=== PATIENT | female | born 1955 | race Caucasian/White ===

== ENCOUNTER 2017-03-17 10:18 | Day surgery (SDC) | payer BC ==
[~2017-03-17 10:18] MED LIST: Metoclopramide 10 MG/2 ML SDV IV PRN; Sodium Chloride 0.9% 10 ML Syringe FLUSH PRN
[2017-03-17] MEDS ORDERED: Propofol 200 MG/20 ML SDV ONE (13:40)
[2017-03-17] MEDS ORDERED: Sodium Chloride 0.9% 1,000 ML IV SCH (13:45)
[2017-03-17 14:31] VITALS: BP 144/71
--- NOTE | 2017-03-17 18:46 | OR ---
DATE OF OPERATION: 03/17/2017 PREOPERATIVE DIAGNOSIS: Colon cancer screening. POSTOPERATIVE DIAGNOSIS: Colon cancer screening. PROCEDURE PERFORMED: Colonoscopy. ANESTHESIA: MAC. ESTIMATED BLOOD LOSS: None. COMPLICATIONS: None. INDICATIONS FOR THE PROCEDURE: The patient is a 61-year-old female, who is here for routine screening colonoscopy. Her last colonoscopy was approximately 11 years ago, and was normal per patient. The patient has had some lower abdominal pains recently; however, these have now resolved. The patient, otherwise, has no change in bowel habits. DESCRIPTION OF PROCEDURE: Informed consent was obtained from the patient. The patient was taken to the operating room and placed on the table in the left lateral decubitus position. Monitored anaesthesia care was applied. Digital rectal examination was performed and no masses were identified. The patient had good rectal tone. The colonoscope was then advanced through the anus, and directed towards the cecum, and did reach the cecum identified by the appendiceal orifice and ileocecal valve. Colonoscope was slowly withdrawn. No masses. No polyps. No AV malformations. No areas of ischemia or inflammation were identified. Retroflexion was performed in the rectum, which was unremarkable. Colonoscope was then removed. FINDINGS: Normal colonoscopy. RECOMMENDATIONS: Would recommend repeat screening colonoscopy in 10 years. ANGELO/MIGNON /[id number]
== END 2017-03-17 15:10 | disposition home or self-care (01) ==
LOC: LB.SDS 10:18
PROVIDERS: ATTEND Surgery
DX: Z12.11 Encounter for screening for malignant neoplasm of colon (principal); Z79.899 Other long term (current) drug therapy; Z91.09 Other allergy status, other than to drugs and biological substances
CPT/HCPCS: 45378; J2704; J7040

== ENCOUNTER 2020-08-04 15:27 | Emergency (ER) | payer MEDICARE ==
[2020-08-04 16:31] VITALS: BP 139/89; PULSE 103
[2020-08-04] MEDS ORDERED: traMADol 50 MG Tab ONE (16:50)
--- NOTE | 2020-08-04 18:05 | EDM.PDOC ---
ED HPI GENERAL MEDICAL PROBLEM - General Chief Complaint: Lower Extremity Injury/Pain Stated Complaint: crushed leg Time Seen by Provider: 08/04/20 16:00 Source of Information: Reports: Patient - History of Present Illness INITIAL COMMENTS - FREE TEXT/NARRATIVE: This is 64 year old Patient presents to the ER with right leg pain after the car door shut on her leg. States she was opening the garage and realized the vehicle was not in park when she got out. She opened the garage and hurried to get back into the car, as the car drove into the garage the door shut down on her right leg. rates right leg pain a 7 out of 10. Swelling noted to back of right knee & anterolateral aspect of her right leg . A bruise also noted on right eye She also had mild bruise on right knee .Pain is worse by movement .Nothing makes pain better denies any h/o loss of consciousness ,fever,nausea ,vomiting ,headache ,chest pain ,abd pain Onset: Today, Sudden Onset Date: 08/04/20 Duration: Hour(s): (2) Quality: Reports: Sharp Severity: Moderate Improves with: Reports: None Worsens with: Reports: Movement Associated Symptoms: Reports: Other (swelling present on right leg ) Right Leg Pain Score (Numeric/FACES): 7 - Related Data Allergies Allergy/AdvReac Type Severity Reaction Status Date / Time No Known Allergies Allergy Verified 08/04/20 16:10 Review of Systems - Review of Systems Review Of Systems: See Below Constitutional: Reports: No Symptoms Eyes: Reports: No Symptoms Respiratory: Reports: No Symptoms, Shortness of Breath, Wheezing, Cough Cardiovascular: Reports: No Symptoms, Chest Pain, Lightheadedness, Palpitations GI/Abdominal: Reports: No Symptoms, Abdominal Pain, Constipation, Decreased Appetite, Diarrhea Musculoskeletal: Reports: Other (swelling & bruising of right knee ,swelling right lower leg ,tenderness present ,ROM decreased on righ knee ) Neurological: Reports: No Symptoms ED EXAM, GENERAL - Physical Exam Exam: See Below Exam Limited By: No Limitations General Appearance: Alert, WD/WN, No Apparent Distress Ears: Other (swelling & brusie present on right eye ) Head: Atraumatic, Normocephalic Respiratory/Chest: No Respiratory Distress, Lungs Clear, Normal Breath Sounds, No Accessory Muscle Use, Chest Non-Tender Cardiovascular: No Edema, No Gallop, No Murmur, No Rub GI/Abdominal: Normal Bowel Sounds, Soft, Non-Tender, No Organomegaly, No Distention Extremities: Other (swelling of right lower leg ,tenderness + ROM decreased on right knee ) Neurological: Alert, Oriented, CN II-XII Intact Course - Vital Signs Text/Narrative:: 64 year old female came with h/o right leg injury Vitals done X ray leg & right knee done -shows moderate to advanced tricompartmental changes . NO fracture of right leg Knee immobilizer applied Pt was sent home F/U at clinic Medication - Tramadol 50 po 8 hourly for pain as needed Last Recorded V/S: Last Vital Signs Temp 96.1 F L 08/04/20 15:45 Pulse 103 H 08/04/20 15:45 Resp 18 08/04/20 15:45 BP 139/89 08/04/20 15:45 Pulse Ox 100 08/04/20 15:45 - Orders/Labs/Meds Orders: Active Orders 24 hr Category Date Time Status Knee 1V or 2V Bi [CR] Stat Exams 08/04/20 16:00 Taken Tibia Fibula Rt [CR] Stat Exams 08/04/20 16:15 Taken Departure - Departure Time of Disposition: 16:45 Disposition: Home, Self-Care 01 Clinical Impression: Contusion of right leg Qualifiers: Encounter type: initial encounter Qualified Code(s): S80.11XA - Contusion of right lower leg, initial encounter Contusion of right knee Qualifiers: Encounter type: initial encounter Qualified Code(s): S80.01XA - Contusion of right knee, initial encounter - Discharge Information Forms: ED Department Discharge Additional Instructions: Discharge home. Elevated leg on 3-4 pillows, wiggle toes and wear splint. Tramadol 50mg by mouth 1 tablet every 8 hours as needed for pain. If swelling gets worse, go straight to [facility] due to compartment syndrome concerns. Follow up with Dr. Fernandes as needed. Call or return to the ER if you have questions or concerns. Sepsis Event Note (ED) - Evaluation Sepsis Screening Result: No Definite Risk - Focused Exam Vital Signs: Vital Signs Temp Pulse Resp BP Pulse Ox 08/04/20 15:45 96.1 F L 103 H 18 139/89 100 - Problem List & Annotations (1) Contusion of right leg SNOMED Code(s): 48307655, 99321461806459931 Code(s): S80.11XA - CONTUSION OF RIGHT LOWER LEG, INITIAL ENCOUNTER Status: Acute Priority: Medium Onset Date: ~08/04/20 Qualifiers: Encounter type: initial encounter Qualified Code(s): S80.11XA - Contusion of right lower leg, initial encounter (2) Contusion of right knee SNOMED Code(s): 18595950 Code(s): S80.01XA - CONTUSION OF RIGHT KNEE, INITIAL ENCOUNTER Status: Acute Priority: Medium Qualifiers: Encounter type: initial encounter Qualified Code(s): S80.01XA - Contusion of right knee, initial encounter - My Orders Last 24 Hours: My Active Orders 08/04/20 16:00 Knee 1V or 2V Bi [CR] Stat 08/04/20 16:15 Tibia Fibula Rt [CR] Stat - Assessment/Plan Last 24 Hours: My Active Orders 08/04/20 16:00 Knee 1V or 2V Bi [CR] Stat 08/04/20 16:15 Tibia Fibula Rt [CR] Stat Plan: Check swelling of right leg periodically check movements & color of toes take pain med as needed f/u with primary care doctor
--- NOTE | 2020-08-05 12:34 | CR ---
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 There is a small joint effusion. No acute fracture or dislocation. No focal lytic or blastic bone lesions. LEFT KNEE: There are tricompartment osteoarthritic changes of the knee joint. There is a small joint effusion. The patient is status post internal fixation of the proximal tibia. No acute fracture or dislocation. No focal lytic or blastic bone lesions. [id number] [facility]
--- NOTE | 2020-08-05 12:36 | CR ---
DATE OF SERVICE: 08/04/2020 CLINICAL DATA: Right leg pain RIGHT LOWER LEG: No acute abnormalities. No lytic or blastic bone lesions. [id number] [facility]
== END 2020-08-04 16:50 | disposition home or self-care (01) ==
LOC: LB.ED 15:27 → MERGE 15:27 → LB.ED 16:50
DX: S80.01XA Contusion of right knee, initial encounter (principal); S80.11XA Contusion of right lower leg, initial encounter; W23.0XXA Caught, crushed, jammed, or pinched between moving objects, initial encounter
CPT/HCPCS: 73560-50; 73590-RT; 99283; A9270-GY

== ENCOUNTER 2021-07-27 19:23 | Emergency (ER) | payer MEDICARE ==
[2021-07-27 20:03] VITALS: BP 140/84; PULSE 86
== END 2021-07-27 20:30 | disposition home or self-care (01) ==
LOC: LB.ED 19:23
DX: T81.89XA Other complications of procedures, not elsewhere classified, initial encounter (principal)
CPT/HCPCS: 87070; 87205; 99283

== ENCOUNTER 2024-02-22 09:13 | Emergency (ER) | payer MEDICARE ==
[2024-02-22 10:58] VITALS: BP 146/83; PULSE 57
== END 2024-02-22 10:52 | disposition home or self-care (01) ==
LOC: LB.ED 09:13
DX: M25.561 Pain in right knee (principal); I10 Essential (primary) hypertension
CPT/HCPCS: 73562-RT; 99283

== ENCOUNTER 2025-04-21 09:36 | Emergency (ER) | payer MEDICARE ==
[2025-04-21] MEDS: Ketorolac 30 MG/ML SDV IM ONE (10:25)
[2025-04-21 11:05] VITALS: BP 139/84
[2025-04-21 11:22] VITALS: PULSE 75
== END 2025-04-21 11:15 | disposition home or self-care (01) ==
LOC: LB.ED 09:36
DX: M16.12 Unilateral primary osteoarthritis, left hip (principal); I10 Essential (primary) hypertension; I25.2 Old myocardial infarction; Z86.16 Personal history of COVID-19; Z79.899 Other long term (current) drug therapy
CPT/HCPCS: 73502-LT; 96372; 99283; J1885